=== PATIENT | male | born 1935 | race Two or more races ===

== ENCOUNTER → 2022-03-12 | Emergency (ER) | payer OTHER ==
[~2022-03-12] VITALS: Ht 167.6 cm; Wt 72.6 kg
[~2022-03-12] MED LIST: ARICEPT10 MG; ARICEPT10 MG PO; AVANDIA4 MG PO; DONEPEZIL HCL10 MG PO; FOLIC ACID1 MG PO; GLIMEPIRIDE2 M1 PO; GLIMEPIRIDE2 MG PO; HYTRIN2 MG; JANUVIA100 MG PO; LEVOTHYROXINE75 MCG PO; SIMVASTATIN40 MG PO; SYNTHROID125 MCG; SYNTHROID50 MCG PO; VITAMIN B-121000 MC2 SL; ZOCOR40 MG PO; ZOCOR80 MG; ZYRTEC10 MG PO
== END | disposition home or self-care (01) ==
LOC: ER 13:01
DX: N39.0 Urinary tract infection, site not specified (principal); R19.7 Diarrhea, unspecified; E86.0 Dehydration; E11.65 Type 2 diabetes mellitus with hyperglycemia; E87.8 Other disorders of electrolyte and fluid balance, not elsewhere classified; R50.9 Fever, unspecified; Z20.822 Contact with and (suspected) exposure to COVID-19; Z88.6 Allergy status to analgesic agent

== ENCOUNTER 2022-03-13 12:55 | Inpatient (IN) | payer OTHER ==
[~2022-03-13] VITALS: Ht 167.6 cm; Wt 66.7 kg
[~2022-03-13 12:55] MED LIST changes: -ARICEPT10 MG PO; -GLIMEPIRIDE2 MG PO; -ZOCOR40 MG PO
[2022-03-13] MEDS ORDERED: GLIMEPIRIDE2 MG PO ×2 (13:50→13:51)
[2022-03-13] MEDS ORDERED: ZOCOR40 MG PO (13:50)
[2022-03-13] MEDS ORDERED: ARICEPT10 MG PO (13:50)
== END 2022-03-16 17:58 | disposition home or self-care (01) | DRG 690 ==
LOC: ER 12:55 → SURG 17:57 → SEC-K 17:57 → SURG 19:19 → MEDI 03-14 11:15 → MEDJ 03-15 13:00
PROVIDERS: ADMIT Internal Medicine; ATTEND Internal Medicine
DX: N39.0 Urinary tract infection, site not specified (principal); E86.0 Dehydration; E87.8 Other disorders of electrolyte and fluid balance, not elsewhere classified; R63.0 Anorexia; I10 Essential (primary) hypertension; E11.9 Type 2 diabetes mellitus without complications; Z79.4 Long term (current) use of insulin

== ENCOUNTER → 2022-12-18 | Emergency (ER) | payer OTHER ==
[~2022-12-18] VITALS: Ht 170.2 cm; Wt 72.6 kg
[~2022-12-18] MED LIST changes: +ARICEPT10 MG PO; +GLIMEPIRIDE2 MG PO; +ZESTRIL10 M1; +ZOCOR40 MG PO
== END | disposition home or self-care (01) ==
LOC: ER 19:08
DX: L03.116 Cellulitis of left lower limb (principal); Z88.6 Allergy status to analgesic agent

== ENCOUNTER 2024-06-15 16:37 | Inpatient (IN) | payer OTHER ==
[~2024-06-15] VITALS: Ht 172.7 cm; Wt 54.4 kg
[2024-06-15] MEDS ORDERED: JANUVIA100 MG (16:43)
[2024-06-15] MEDS ORDERED: IMODIUM A-D2 MG (16:44)
[2024-06-15] MEDS ORDERED: OXYBUTYNIN CHLOR5 MG (16:44)
[2024-06-15] MEDS ORDERED: TRAZODONE HCL50 MG (16:45)
--- NOTE | 2024-06-15 16:59 | NUR ---
SE RECIBE PACIENTE ALERTA Y ORIENTADO EN PERSONA EN AMBULANCIA EN COMPANIA DE FAMILIAR EL CUAL INDICA QUE PACIENTE SUFRIO UN EPISODIO DE DESORIENTACION A LAS 5AM. REFIERE QUE PACIENTE NO PODIA VERBALIZAR, NI AMBULAR. PARAMEDICOS INDICA QUE AL LLEGAR AL HOGAR PACIENTE PRESENTO LA GLUCOSA EN 55MG/DL. SE OBSERVA VENOPUNCION EN BRAZO MARIAM CON ANGIO #20 AREA J[place] DE EDEMA Y ERITEMA, RECIBIENDO IV'S D5W 250ML/HR BAJANDO KVO. SE REALIZA EKG. SE UBICA A PACIENTE EN UNIDAD DE ICU 2, SE CONECTA A MONITOR CARDIACO Y A OXIMETRIA DE PUL[place]. SE NOTIFICA A .
[2024-06-15] MEDS ORDERED: 0.9 % SODIUM CHLORIDE 1,000 ML IV SCH (17:15)
[2024-06-15 17:43] LABS: HEMATOCRIT 34.9 % (39.0-48.0); HEMOGLOBIN 11.6 g/dL (13-16.00); MEAN CELL VOLUME 83.3 fL (80.0-100.00); MEAN CORPUSCULAR HEMOGLOBIN 27.6 pg (27.00-32.0); MEAN CORPUSCULAR HGB CONC 33.1 g/dl (32.0-36.0); PLATELET COUNT 173 K/uL (150-450); RED BLOOD COUNT 4.19 M/uL (4.00-6.00); RED CELL DISTRIBUTION WIDTH 13.8 % (11.5-14.5)
--- NOTE | 2024-06-15 18:00 | NUR ---
SE CONECTA PACIENTE A MONITOR CAARDIACO Y OXIMETRIA DE PULSO. SE CANALIZA Y COLECTAN MUESTRAS DE LABORATORIO MEDIANTE MEDIDAS ASEPTICAS. SE NOTIFICAN ESTUDIOS PENDIENTE A PERSONAL EN TURNO. SE EDUCA A FAMILIARES ACERCA DE NORMAS DE UNIDAD.
[2024-06-15 18:06] LABS: CALCIUM 8.5 mg/dL (8.5-10.1); CREATININE SERUM 2.39 mg/dL (0.70-1.30); GFR 25.86
[2024-06-15 18:17] LABS: POTASSIUM 6.24 mEq/L (3.5-5.1)
[2024-06-15 18:29] LABS: INR 1.18; PARTIAL THROMBOPLASTIN TIME 25.3 SECONDS (22.0-34.0); PROTHROMBIN TIME 12.2 SECONDS (9.0-11.5)
[2024-06-15] MEDS ORDERED: SODIUM POLYSTYRENE SULFONATE 15 G/4 TSP TSP PO SCH (20:19)
[2024-06-15] MEDS ORDERED: INSULIN REGULAR, HUMAN 1,000 UNIT/10 ML UNITS IV ONE (20:30)
[2024-06-15] MEDS ORDERED: DEXTROSE 50 % IN WATER 0.5 G/ML VIAL IV ONE (20:30)
[2024-06-15] MEDS ORDERED: CALCIUM GLUCONATE 100 MG/ML VIAL IV ONE (20:30)
--- NOTE | 2024-06-16 00:23 | NUR ---
2300 SE RECIBE PACIENTE ALERTA Y DESORIENTADO. SE OBSERVA CANULA NASAL A 1L. PACIENTE CON DOS CANALIZACIONES CON ANGIOS #20 EN BRAZO DERECHO E MARIAM. AMBAS VENOPUNCIONES SE ENCUENTRAN LIBRES DE EDEMA Y PROCESOS INFECCIOSOS. SE ENCUENTRA BAJANDO UN 0.9NSS A 80ML/HR. PACIENTE SE ENCUENTRA CONECTADO A MONITOR CARDIACO Y OXIMETRIA DE [place] CONTINUA PRESENTANDO VITALES AL MOMENTO DE BP:138/55 (90), HR: 42 Y SPO2: 99%. ABDOMEN SE ENCUENTRA BLANDO AL TACTO CON PERISTALSIS PRESENTE. PACIENTE ORINANDO ESPONTANEO. EXTRAMIDADES SUPERIORES E INFERIORES SE ENCUENTRAN LIBRES DE EDEMA. PACIENTE RESTRINGIDO X2 CON ORDEN MEDICA FIRMADA EN RECORD DE PACIENTE. SE MANTIENE EN OBSERVACION POR CAMBIOS SIGNIFICATIVOS EN BATISTA CONDICION.
[2024-06-16] MEDS ORDERED: 0.9 % SODIUM CHLORIDE 1,000 ML IV SCH (01:45)
[2024-06-16] MEDS ORDERED: ACETAMINOPHEN 500 MG GEL..CAP PO PRN (02:00)
[2024-06-16] MEDS ORDERED: INSULIN LISPRO 1,000 UNIT/10 ML UNITS SUBCUTANEO PRN (02:00)
[2024-06-16] MEDS ORDERED: DEXTROSE 50 % IN WATER 0.5 G/ML DISP.SYRIN IV PRN (02:00)
[2024-06-16 04:01] VITALS: BP 120/59; O2SAT 97
[2024-06-16 04:23] LABS: INR 1.24; PARTIAL THROMBOPLASTIN TIME 25.2 SECONDS (22.0-34.0); PROTHROMBIN TIME 12.7 SECONDS (9.0-11.5)
[2024-06-16 04:24] LABS: MAGNESIUM 2.1 mg/dL (1.8-2.4)
[2024-06-16 04:35] VITALS: BP 108/73; O2SAT 96
[2024-06-16 04:53] LABS: URINE APPEARANCE Clear; URINE BILIRRUBIN Negative (NEGATIVE); URINE BLOOD Negative; URINE COLOR Yellow; URINE KETONE Trace (NEGATIVE); URINE LEUKOCYTE Negative; URINE NITRATE Negative; URINE PROTEIN 30 (NEGATIVE)
[2024-06-16 04:56] LABS: URINE WBC 16.4 uL (0.0-23.2)
[2024-06-16 05:14] LABS: URINE BACTERIA > 9821.5 uL (0.0-1933); URINE CAST 0.45 uL (0.0-1.40); URINE GLUCOSE 100 MG/DL (NEGATIVE)
[2024-06-16] MEDS ORDERED: LEVOTHYROXINE SODIUM 75 MCG TABLET PO SCH (06:00)
[2024-06-16 08:58] VITALS: BP 153/65; O2SAT 81
[2024-06-16] MEDS ORDERED: SODIUM POLYSTYRENE SULFONATE 15 G/4 TSP TSP PO SCH (09:00)
[2024-06-16] MEDS ORDERED: SODIUM POLYSTYRENE SULFONATE 30G/8 TSP PO SCH (09:00)
[2024-06-16 09:31] VITALS: O2SAT 83
[2024-06-16] MEDS ORDERED: DONEPEZIL HCL 10 MG TABLET PO SCH (17:00)
[2024-06-16 17:54] VITALS: BP 136/70; O2SAT 100
[2024-06-16 20:04] VITALS: O2SAT 100
[2024-06-16] MEDS ORDERED: TRAZODONE HCL 50 MG TABLET PO SCH (21:00)
[2024-06-17] VITALS (7 sets, daily range): BP systolic 147–168; BP diastolic 70–95; O2SAT 89–100
[2024-06-17 06:58] LABS: ALBUMIN 3.2 gm/dL (3.4-5.0); BILIRUBIN TOTAL 0.77 mg/dL (0.3-1.2); CALCIUM 8.4 mg/dL (8.5-10.1); CREATININE SERUM 1.39 mg/dL (0.70-1.30); GFR 48.34; GLOBULINA 3.3 G/DL (2.4-3.5); POTASSIUM 4.58 mEq/L (3.5-5.1); TOTAL PROTEIN 6.5 gm/dL (6.4-8.2); TSH 0.368 uIU/mL (0.358-3.74)
[2024-06-17] MEDS ORDERED: INSULIN LISPRO 1,000 UNIT/10 ML UNITS SUBCUTANEO PRN (14:45)
[2024-06-18] VITALS (8 sets, daily range): BP systolic 153–176; BP diastolic 66–85; O2SAT 96–100
[2024-06-18] MEDS ORDERED: MEMANTINE HCL 5 MG TABLET PO SCH (09:00)
[2024-06-18] MEDS ORDERED: hydrALAZINE HCL 25 MG TABLET PO SCH (09:26)
[2024-06-18 16:55] LABS: ALBUMIN 2.8 gm/dL (3.4-5.0); BILIRUBIN TOTAL 0.68 mg/dL (0.3-1.2); CALCIUM 7.9 mg/dL (8.5-10.1); CREATININE SERUM 1.33 mg/dL (0.70-1.30); GFR 50.86; GLOBULINA 3.1 G/DL (2.4-3.5); POTASSIUM 3.88 mEq/L (3.5-5.1); TOTAL PROTEIN 5.9 gm/dL (6.4-8.2)
[2024-06-19 02:00] VITALS: O2SAT 99
[2024-06-19 02:31] VITALS: BP 150/73; O2SAT 94
[2024-06-19 04:47] LABS: HEMATOCRIT 33.7 % (39.0-48.0); MEAN CELL VOLUME 82.7 fL (80.0-100.00); MEAN CORPUSCULAR HGB CONC 33.8 g/dl (32.0-36.0); PLATELET COUNT 150 K/uL (150-450); RED BLOOD COUNT 4.08 M/uL (4.00-6.00)
[2024-06-19 04:50] LABS: HEMOGLOBIN 11.4 g/dL (13-16.00); MEAN CORPUSCULAR HEMOGLOBIN 27.9 pg (27.00-32.0)
[2024-06-19 05:39] LABS: CALCIUM 7.9 mg/dL (8.5-10.1); CREATININE SERUM 1.2 mg/dL (0.70-1.30); GFR 57.27; POTASSIUM 3.66 mEq/L (3.5-5.1)
[2024-06-19 06:20] VITALS: O2SAT 96
[2024-06-19 08:44] VITALS: BP 143/64
[2024-06-19 09:03] VITALS: O2SAT 97
[2024-06-19 12:34] VITALS: O2SAT 99
== END 2024-06-19 13:26 | disposition home or self-care (01) | DRG 683 ==
LOC: ER 16:37 → SURG 06-16 01:52 → SEC-K 06-16 01:52 → SURG 06-16 02:22 → MEDI 06-17 16:47 → SURG 06-17 17:20 → MEDI 06-17 18:47
PROVIDERS: Emergency Medicine; General Practice; Internal Medicine; ADMIT Internal Medicine; ATTEND Internal Medicine
PROC: BW28ZZZ Computerized Tomography (CT Scan) of Head (ICD-10-PCS; principal; 2024-06-15)
PROC: BW21ZZZ Computerized Tomography (CT Scan) of Abdomen and Pelvis (ICD-10-PCS; 2024-06-15)
PROC: 4A12X4Z Monitoring of Cardiac Electrical Activity, External Approach (ICD-10-PCS; 2024-06-16)
PROC: B246ZZZ Ultrasonography of Right and Left Heart (ICD-10-PCS; 2024-06-17)
DX: N17.8 Other acute kidney failure (principal); F02.811 Dementia in other diseases classified elsewhere, unspecified severity, with agitation; R00.1 Bradycardia, unspecified; E87.5 Hyperkalemia; G30.9 Alzheimer's disease, unspecified; E87.8 Other disorders of electrolyte and fluid balance, not elsewhere classified; I10 Essential (primary) hypertension; E03.9 Hypothyroidism, unspecified; E11.65 Type 2 diabetes mellitus with hyperglycemia; Z79.4 Long term (current) use of insulin

== ENCOUNTER 2025-03-24 19:36 | Emergency (ER) | payer OTHER ==
[~2025-03-24] VITALS: Ht 167.6 cm; Wt 63.5 kg
[~2025-03-24 19:36] MED LIST changes: +IMODIUM A-D2 MG; +JANUVIA100 MG; +OXYBUTYNIN CHLOR5 MG; +TRAZODONE HCL50 MG
[2025-03-24] MEDS ORDERED: 0.9 % SODIUM CHLORIDE 1,000 ML IV STA (20:39)
[2025-03-24 21:09] LABS: BASO % 0.0 % (0.1-1.2); EOS # 0.19 (0.04-0.54); EOS % 3.7 % (0.7-7.0); LYMPH # 1.25 (1.18-3.74); LYMPH % 24.2 % (19.3-53.1); MEAN PLATELET VOLUME 11.90 fl (9.4-12.4); MONO # 0.52 (0.24-0.82); MONO % 10.1 % (4.7-12.5); NEUT # 3.20 (1.56-6.13); NEUT % 61.8 % (34.0-71.1); RED CELL DISTRIBUTION WIDTH 13.9 % (11.6-14.4)
[2025-03-24 21:35] LABS: URINE APPEARANCE Clear; URINE BILIRRUBIN Negative (NEGATIVE); URINE BLOOD Large; URINE COLOR Yellow; URINE GLUCOSE Negative (NEGATIVE); URINE KETONE Trace (NEGATIVE); URINE LEUKOCYTE Trace; URINE NITRATE Negative; URINE PROTEIN 30 (NEGATIVE); URINE UROBILINOGEN 0.2 E.U./dl
[2025-03-24 21:39] LABS: URINE BACTERIA 42.0 uL (0.0-1933); URINE CAST 9.38 uL (0.0-1.40); URINE EPITHELIAL CELLS 18.7 uL (0.0-38.8); URINE RBC 672.1 uL (0.0-20.8); URINE WBC 8.6 uL (0.0-23.2)
[2025-03-24] MEDS ORDERED: FAMOTIDINE/PF 20 MG/2 ML VIAL IV STA (21:43)
[2025-03-24 21:45] LABS: ALT/SGPT 29.0 U/L (12-78); AST/SGOT 16.0 U/L (15-37); BILIRUBIN TOTAL 0.43 mg/dL (0.3-1.2); BUN CREA RATIO 17.0 (7.0-25.0); CREATININE SERUM 2.38 mg/dL (0.70-1.30); GFR 25.93; GLOBULINA 3.8 G/DL (2.4-3.5); GLUCOSE FASTING 95.0 mg/dL (65-100); OSMOLALITY SERUM 291.0 MOSM/KG (275-295)
[2025-03-24 22:01] LABS: TYPE CELLS SQUAMOUS
[2025-03-24] MEDS ORDERED: CALCIUM GLUCONATE IV STA (22:42)
[2025-03-24] MEDS ORDERED: INSULIN REGULAR, HUMAN 1,000 UNIT/10 ML UNITS IV STA (22:45)
[2025-03-24] MEDS ORDERED: DEXTROSE 50 % IN WATER 0.5 G/ML VIAL IV STA (22:46)
[2025-03-25] MEDS ORDERED: DEXTROSE 50 % IN WATER 0.5 G/ML VIAL IV ONE (00:12)
[2025-03-25] MEDS ORDERED: CALCIUM GLUCONATE 100 MG/ML VIAL IV ONE (03:15)
[2025-03-25] MEDS ORDERED: INTESTINEX680 M1 PO (03:17)
== END 2025-03-25 03:24 ==
LOC: ER 19:36
PROVIDERS: General Practice
DX: R19.7 Diarrhea, unspecified (principal)
CPT/HCPCS: 36415; 93005; 96365; 96366; 99282; J1815; J3490 ×3; J7030

== ENCOUNTER 2025-03-26 23:29 | Emergency (ER) | payer OTHER ==
[~2025-03-26] VITALS: Ht 167.6 cm; Wt 74.8 kg
[~2025-03-26 23:29] MED LIST changes: +INTESTINEX680 M1 PO
[2025-03-26] MEDS ORDERED: CRESTOR40 MG (23:52)
[2025-03-27] MEDS ORDERED: 0.9 % SODIUM CHLORIDE 500 ML IV STA (00:37)
[2025-03-27 01:30] LABS: BASO % 0.1 % (0.1-1.2); EOS # 0.68 (0.04-0.54); EOS % 8.4 % (0.7-7.0); LYMPH # 1.76 (1.18-3.74); LYMPH % 21.9 % (19.3-53.1); MEAN PLATELET VOLUME 11.70 fl (9.4-12.4); MONO # 0.58 (0.24-0.82); MONO % 7.2 % (4.7-12.5); NEUT # 4.96 (1.56-6.13); NEUT % 61.7 % (34.0-71.1); RED CELL DISTRIBUTION WIDTH 13.9 % (11.6-14.4)
[2025-03-27 01:59] LABS: INR 1.21
[2025-03-27 02:24] LABS: ALT/SGPT 26.0 U/L (12-78); AST/SGOT 15.0 U/L (15-37); BILIRUBIN TOTAL 0.49 mg/dL (0.3-1.2); BUN CREA RATIO 15.0 (7.0-25.0); CREATININE SERUM 2.02 mg/dL (0.70-1.30); GFR 31.33; GLOBULINA 3.4 G/DL (2.4-3.5); GLUCOSE FASTING 59.0 mg/dL (65-100); OSMOLALITY SERUM 285.0 MOSM/KG (275-295); TSH 2.58 uIU/mL (0.358-3.74)
[2025-03-27 03:52] LABS: COVID-19 AG NEGATIVE (NEGATIVE)
[2025-03-27] MEDS ORDERED: DEXTROSE 5 % AND 0.9 % NACL 1,000 ML IV ONE (04:15)
[2025-03-27] MEDS ORDERED: DEXTROSE 50 % IN WATER 0.5 G/ML VIAL IV ONE (06:01)
[2025-03-27] MEDS ORDERED: DEXTROSE 50 % IN WATER 0.5 G/ML VIAL IV STA (06:02)
== END 2025-03-27 06:28 | disposition home or self-care (01) ==
LOC: ER 23:29
DX: E11.649 Type 2 diabetes mellitus with hypoglycemia without coma (principal); I10 Essential (primary) hypertension; E03.8 Other specified hypothyroidism; Z20.822 Contact with and (suspected) exposure to COVID-19
CPT/HCPCS: 36415; 96365; 96366; 99282; J3490 ×2; J7042

== ENCOUNTER 2025-06-25 15:12 | Emergency (ER) | payer OTHER ==
[~2025-06-25] VITALS: Ht 170.2 cm; Wt 72.6 kg
[~2025-06-25 15:12] MED LIST changes: +CRESTOR40 MG
[2025-06-25] MEDS ORDERED: ARICEPT10 MG PO (16:07)
[2025-06-25] MEDS ORDERED: SEROQUEL25 MG PO (16:07)
[2025-06-25] MEDS ORDERED: ZESTRIL10 M1 PO (16:08)
[2025-06-25] MEDS ORDERED: HYDRALAZINE HCL25 MG PO (16:08)
[2025-06-25] MEDS ORDERED: CRESTOR40 MG PO (16:08)
[2025-06-25] MEDS ORDERED: REMERON15 MG PO (16:08)
[2025-06-25] MEDS ORDERED: GLIMEPIRIDE1 MG (16:09)
[2025-06-25] MEDS ORDERED: LEVO-T75 MCG PO (16:09)
[2025-06-25 17:07] LABS: BASO % 0.3 % (0.1-1.2); EOS # 0.01 (0.04-0.54); EOS % 0.1 % (0.7-7.0); LYMPH # 0.67 (1.18-3.74); LYMPH % 9.9 % (19.3-53.1); MEAN PLATELET VOLUME 11.50 fl (9.4-12.4); MONO # 0.37 (0.24-0.82); MONO % 5.5 % (4.7-12.5); NEUT # 5.67 (1.56-6.13); NEUT % 83.9 % (34.0-71.1); RED CELL DISTRIBUTION WIDTH 13.9 % (11.6-14.4)
[2025-06-25 17:39] LABS: ALT/SGPT 77.0 U/L (12-78); AST/SGOT 40.0 U/L (15-37); BILIRUBIN TOTAL 0.46 mg/dL (0.3-1.2); BUN CREA RATIO 17.0 (7.0-25.0); CREATININE SERUM 1.72 mg/dL (0.70-1.30); GFR 37.71; GLOBULINA 4.2 G/DL (2.4-3.5); GLUCOSE FASTING 180.0 mg/dL (65-100); OSMOLALITY SERUM 290.0 MOSM/KG (275-295)
[2025-06-25 17:43] LABS: COVID-19 AG NEGATIVE (NEGATIVE)
[2025-06-25 19:22] LABS: URINE APPEARANCE Clear; URINE BILIRRUBIN Negative (NEGATIVE); URINE BLOOD Trace; URINE COLOR Yellow; URINE GLUCOSE Negative (NEGATIVE); URINE KETONE Negative (NEGATIVE); URINE LEUKOCYTE Trace; URINE NITRATE Negative; URINE UROBILINOGEN 0.2 E.U./dl
[2025-06-25 19:27] LABS: URINE BACTERIA 64.7 uL (0.0-1933); URINE CAST 2.05 uL (0.0-1.40); URINE EPITHELIAL CELLS 7.9 uL (0.0-38.8); URINE RBC 6.7 uL (0.0-20.8); URINE WBC 13.0 uL (0.0-23.2)
[2025-06-25 19:30] LABS: URINE PROTEIN 100 (NEGATIVE)
== END 2025-06-25 22:38 ==
LOC: ER 15:13
PROVIDERS: General Practice
DX: G30.9 Alzheimer's disease, unspecified (principal); F02.80 Dementia in other diseases classified elsewhere, unspecified severity, without behavioral disturbance, psychotic disturbance, mood disturbance, and anxiety; R53.1 Weakness; R53.81 Other malaise; I10 Essential (primary) hypertension; E03.8 Other specified hypothyroidism; E11.9 Type 2 diabetes mellitus without complications; Z20.822 Contact with and (suspected) exposure to COVID-19